=== PATIENT | female | born 1980 | race Caucasian/White ===

== ENCOUNTER 2017-04-10 17:39 | Emergency (ER) | payer MEDICAID ==
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
== END 2017-04-10 18:30 | disposition short-term general hospital (02) ==
LOC: ER 17:39 → EEVIPCON 17:39 → ER 18:30
DX: S80.02XA Contusion of left knee, initial encounter (principal); Y08.89XA Assault by other specified means, initial encounter; Y93.89 Activity, other specified; Y92.89 Other specified places as the place of occurrence of the external cause; Y99.8 Other external cause status
CPT/HCPCS: Z7502